=== PATIENT | male | born 1940 | race Caucasian/White ===

== ENCOUNTER 2017-05-20 10:32 | Day surgery (SDC) | payer OTHER ==
[~2017-05-20 10:32] MED LIST: DIPRIVAN VIAL ONE
[2017-05-20] MEDS ORDERED: NS 500 ML IV 500 ML IV ONE (10:56)
[2017-05-20] MEDS: TETRACAINE 0.5% OPHTH 1 DOSE AFFEYE ONE ×2 (11:00→14:36)
[2017-05-20] MEDS: NS 1/2 1000 ML IV 500 ML IV ONE (11:00)
[2017-05-20] MEDS: VIGAMOX 0.5% OPHTH 1 DOSE AFFEYE ONE ×6 (11:01→15:00)
[2017-05-20] MEDS: PROLENSA OPHTH 1 DOSE AFFEYE ONE (11:13)
[2017-05-20] MEDS: ALPHAGAN-P OPHTH 1 DOSE AFFEYE ONE (11:14)
[2017-05-20] MEDS: CYCLOGYL 1% OPHTH 1 DOSE OP ONE ×3 (11:15→11:17)
[2017-05-20] MEDS: MYDRIACIL OPHTH 1 DOSE AFFEYE ONE ×3 (11:15→11:17)
[2017-05-20] MEDS: AK-DILATE 2.5% OPHTH 1 DOSE OP ONE ×3 (11:15→11:17)
[2017-05-20] MEDS: BETADINE OPHTH SOLN 5% EACHEYE ONE (14:36)
[2017-05-20] MEDS: DUOVISC IO ONE (14:50)
[2017-05-20] MEDS: BSS OPHTH (PLAIN) 500 ML with VANCOMYCIN HCL 500 MG VIAL 25 MG, ADRENALINE CHL INJ 1 MG IR ONE ×3 (14:50)
[2017-05-20] MEDS: ADRENALINE CHL INJ IJ ONE (14:50)
[2017-05-20] MEDS: XYLOCAINE-MPF 1% IJ ONE (14:50)
[2017-05-20 15:46] VITALS: BP 150/74
== END 2017-05-20 15:30 | disposition home or self-care (01) ==
LOC: SURG1 10:32
PROVIDERS: ATTEND Ophthalmology
PROC: 08DK3ZZ Extraction of Left Lens, Percutaneous Approach (ICD-10-PCS; principal; 2017-05-20 20:45)
PROC: 08RK3JZ Replacement of Left Lens with Synthetic Substitute, Percutaneous Approach (ICD-10-PCS; principal; 2017-05-20 20:45)
DX: H25.12 Age-related nuclear cataract, left eye (principal); H25.012 Cortical age-related cataract, left eye
CPT/HCPCS: 99100; A4217; J0170; J3370; J3490

== ENCOUNTER 2017-06-10 07:32 | Day surgery (SDC) | payer OTHER ==
[2017-06-10] MEDS ORDERED: NS 500 ML IV 500 ML IV ONE (07:57)
[2017-06-10] MEDS ORDERED: TETRACAINE 0.5% OPHTH 1 DOSE AFFEYE ONE ×2 (08:00→09:46)
[2017-06-10] MEDS ORDERED: VIGAMOX 0.5% OPHTH 1 DOSE AFFEYE ONE ×5 (08:01→10:07)
[2017-06-10] MEDS ORDERED: PROLENSA OPHTH 1 DOSE AFFEYE ONE (08:12)
[2017-06-10] MEDS ORDERED: ALPHAGAN-P OPHTH 1 DOSE AFFEYE ONE (08:13)
[2017-06-10] MEDS ORDERED: MYDRIACIL OPHTH 1 DOSE AFFEYE ONE ×3 (08:14→08:16)
[2017-06-10] MEDS ORDERED: CYCLOGYL 1% OPHTH 1 DOSE OP ONE ×3 (08:14→08:16)
[2017-06-10] MEDS ORDERED: AK-DILATE 2.5% OPHTH 1 DOSE OP ONE ×3 (08:14→08:16)
[2017-06-10] MEDS ORDERED: BETADINE OPHTH SOLN 5% EACHEYE ONE (09:46)
[2017-06-10] MEDS ORDERED: DIPRIVAN VIAL ONE (09:46)
[2017-06-10] MEDS ORDERED: VERSED ONE (09:46)
[2017-06-10] MEDS ORDERED: XYLOCAINE-MPF 1% IJ ONE (09:55)
[2017-06-10] MEDS ORDERED: BSS OPHTH (PLAIN) 500 ML with VANCOMYCIN HCL 500 MG VIAL 25 MG, ADRENALINE CHL INJ 1 MG IR ONE ×3 (09:55)
[2017-06-10] MEDS ORDERED: DUOVISC IO ONE (09:55)
[2017-06-10] MEDS ORDERED: ADRENALINE CHL INJ IJ ONE (09:55)
[2017-06-10 10:21] VITALS: BP 198/87
== END 2017-06-10 10:21 | disposition home or self-care (01) ==
LOC: SURG1 07:32
PROVIDERS: ATTEND Ophthalmology
PROC: 08DJ3ZZ Extraction of Right Lens, Percutaneous Approach (ICD-10-PCS; principal; 2017-06-10 11:15)
PROC: 08RJ3JZ Replacement of Right Lens with Synthetic Substitute, Percutaneous Approach (ICD-10-PCS; principal; 2017-06-10 11:15)
DX: H25.11 Age-related nuclear cataract, right eye (principal); H25.011 Cortical age-related cataract, right eye; H52.221 Regular astigmatism, right eye
CPT/HCPCS: 99100; A4222; A4217; J0170; J2250; J3370; J3490

== ENCOUNTER 2018-08-24 12:41 | Inpatient (IN) ==
[2018-08-24] MEDS ORDERED: NS 1/2 1000 ML IV 1,000 ML IV ONE (14:51)
[2018-08-24 15:29] LABS: BASOPHILS # (AUTO) 0.1 X10^3/uL (0.0-0.1); EOSINOPHILS # (AUTO) 0.5 x10^3/uL (0.0-0.2); EOSINOPHILS % (AUTO) 5.4 % (0.9-2.9); HEMATOCRIT 42.1 % (42.0-54.0); LYMPHOCYTES % (AUTO) 21.7 % (21.0-51.0); MEAN CORPUSCULAR HEMOGLOBIN 32.7 pg (27.0-34.0); MEAN CORPUSCULAR HGB CONC 35.7 g/dL (33.0-35.0); MEAN CORPUSCULAR VOLUME 91.7 fL (80.0-100.0); MEAN PLATELET VOLUME 7.1 fL (7.4-11.0); MONOCYTES # (AUTO) 1.1 x10^3/uL (0.3-0.8); NEUTROPHILS # (AUTO) 5.4 x10^3/uL (2.2-4.8); NEUTROPHILS % (AUTO) 59.9 % (42.0-75.0); PLATELET COUNT 325 X10^3/uL (150.0-450.0); RED BLOOD COUNT 4.59 X10^6/uL (4.7-6.0)
[2018-08-24 15:43] LABS: ALANINE AMINOTRANSFERASE 26 Units/L (12-78); ALBUMIN 3.5 g/dL (3.4-5.0); ALKALINE PHOSPHATASE 59 Units/L (46-116); ASPARTATE AMINO TRANSFERASE 19 Units/L (15-37); BLOOD UREA NITROGEN 11 mg/dL (7-18); CALCIUM 8.7 mg/dL (8.5-10.1); CARBON DIOXIDE 22.2 mmol/L (21-32); CHLORIDE 98 mmol/L (98-107); CREATININE 1.13 mg/dL (0.70-1.30); SODIUM 131 mmol/L (136-145); TOTAL PROTEIN 7.1 g/dL (6.4-8.2); eGFR NON BLACK RACES > 60 (>60)
[2018-08-24] MEDS: LEVAQUIN PREMIX IV 750 MG 750 MG/150 ML BAG IV SCH (15:43)
[2018-08-24] MEDS: NS 1/2 1000 ML IV 1,000 ML IV SCH (15:43)
--- NOTE | 2018-08-24 15:59 | RAD ---
HISTORY: Pneumonia Study: PA and lateral views of the chest. Comparison: None. Findings: The cardiomediastinal silhouette is normal. No focal consolidations, pleural effusions or pneumothora x. Osseous structures demonstrate no acute abnormality. IMPRESSION: 1. No acute cardiopulmonary process. Reported By:
[2018-08-24] MEDS ORDERED: DUONEB 0.5 MG/3 MG ONE (16:25)
[2018-08-24 16:36] VITALS: BMI 35.0
[2018-08-24] MEDS ORDERED: PREVNAR 13 IM ONE (16:36)
[2018-08-24] MEDS: DUONEB 0.5 MG/3 MG NEB SCH ×2 (16:50→21:05)
[2018-08-24] MEDS: ROBITUSSIN DM PO SCH ×2 (17:20→20:54)
[2018-08-24] MEDS ORDERED: NORCO 5/325 MG TAB PO PRN (21:20)
[2018-08-24] MEDS: LOPRESSOR TAB 25 MG PO SCH (21:37)
[2018-08-25] MEDS: DUONEB 0.5 MG/3 MG NEB SCH ×6 (01:48→20:46)
[2018-08-25] MEDS ORDERED: NS 1/2 1000 ML IV 1,000 ML IV ONE ×2 (02:43→17:55)
[2018-08-25] MEDS: NS 1/2 1000 ML IV 1,000 ML IV SCH ×2 (04:54→17:56)
[2018-08-25 05:24] LABS: BASOPHILS # (AUTO) 0.1 X10^3/uL (0.0-0.1); BASOPHILS % (AUTO) 0.7 % (0.2-1.0); EOSINOPHILS # (AUTO) 0.4 x10^3/uL (0.0-0.2); EOSINOPHILS % (AUTO) 4.3 % (0.9-2.9); HEMATOCRIT 42.4 % (42.0-54.0); HEMOGLOBIN 15.1 g/dL (13.5-18.0); LYMPHOCYTES # (AUTO) 1.6 X10^3/uL (1.3-2.9); LYMPHOCYTES % (AUTO) 16.2 % (21.0-51.0); MEAN CORPUSCULAR HEMOGLOBIN 32.6 pg (27.0-34.0); MEAN CORPUSCULAR HGB CONC 35.7 g/dL (33.0-35.0); MEAN CORPUSCULAR VOLUME 91.3 fL (80.0-100.0); MEAN PLATELET VOLUME 7.1 fL (7.4-11.0); MONOCYTES # (AUTO) 1.2 x10^3/uL (0.3-0.8); MONOCYTES % (AUTO) 12.4 % (0.0-13.0); NEUTROPHILS # (AUTO) 6.5 x10^3/uL (2.2-4.8); NEUTROPHILS % (AUTO) 66.4 % (42.0-75.0); PLATELET COUNT 297 X10^3/uL (150.0-450.0); RED BLOOD COUNT 4.64 X10^6/uL (4.7-6.0); RED CELL DISTRIBUTION WIDTH 12.8 % (11.6-16.5); WHITE BLOOD COUNT 9.8 X10^3/uL (3.6-10.0)
[2018-08-25 05:28] LABS: ALANINE AMINOTRANSFERASE 23 Units/L (12-78); ALBUMIN 3.3 g/dL (3.4-5.0); ALKALINE PHOSPHATASE 50 Units/L (46-116); ASPARTATE AMINO TRANSFERASE 19 Units/L (15-37); BLOOD UREA NITROGEN 9 mg/dL (7-18); CALCIUM 8.5 mg/dL (8.5-10.1); CARBON DIOXIDE 24.9 mmol/L (21-32); CHLORIDE 97 mmol/L (98-107); COR CA(FOR HYPOALB) 9.1 mg/dL (8.5-10.1); CREATININE 1.06 mg/dL (0.70-1.30); SODIUM 130 mmol/L (136-145); TOTAL PROTEIN 6.9 g/dL (6.4-8.2); eGFR NON BLACK RACES > 60 (>60)
[2018-08-25] MEDS: TUSSIONEX PENNKINETIC SUSP PO PRN ×2 (06:19→23:45)
--- NOTE | 2018-08-25 08:07 | RAD ---
HISTORY: Pneumonia Study: Chest AP portable Comparison: 08/24/2018 Findings: The heart is within normal limits in size. The carlitos are normal. The aorta is calcified. The lungs are free of acute alveolar infiltrates. No pleural effusions are identified. The bony thorax is unremark able. IMPRESSION: Lungs clear Reported By:
[2018-08-25] MEDS: ROBITUSSIN DM PO SCH ×4 (08:14→20:58)
[2018-08-25] MEDS: LEVAQUIN PREMIX IV 750 MG 750 MG/150 ML BAG IV SCH (08:14)
[2018-08-25] MEDS: LOPRESSOR TAB 25 MG PO SCH ×2 (08:14→20:58)
[2018-08-25] MEDS: SYNTHROID 137 mcg TAB PO SCH (08:21)
[2018-08-25] MEDS: COZAAR PO SCH (08:21)
[2018-08-25] MEDS: MICRO K EXTEN CAP 10 MEQ PO SCH (08:21)
[2018-08-25] MEDS ORDERED: ZOFRAN INJ 4 MG VIAL IVP PRN (11:44)
[2018-08-25] MEDS ORDERED: CATAPRES-TTS-1 TD SCH (17:00)
[2018-08-25] MEDS: LASIX IVP SCH (17:51)
[2018-08-25] MEDS: ASPIRIN EC 81 MG PO SCH (17:51)
--- NOTE | 2018-08-25 20:51 | PCM.PROG ---
Progress Note - Progress Note for Day of Date of Exam: 08/25/18 - Subjective Subjective: WAS ADMITTED FOR TREATMENT OF BRONCHOPNEUMONIA. HE REPORTS BEING ON ANTIBIOTICS AND BREATHING TREATMENTS AT HOME FOR THE PAST WEEK WITHOUT IMPROVEMENT. TODAY, HE IS ALERT AND ORIENTED, LYING IN BED ON MORNING ROUNDS. HE CONTINUES WITH COMPLAINTS OF A PRODUCTIVE COUGH AND SHORTNESS OF BREATH. ON EXAMINATION, HEART IS REGULAR IN RATE AND RHYTHM. BILATERAL LUNGS ARE NOTED WITH SCATTERED WHEEZING AND RHONCHI. HE IS CURRENTLY UTILIZING OXYGEN VIA NASAL CANNULA AT 2L/MIN. ABDOMEN IS ROUND, SOFT, AND NON-TENDER WITH NORMAL BOWEL SOUNDS NOTED IN ALL QUADRANTS. HIS VITALS THIS MORNING ARE 98.6-82-20-96%- 190/98. LABS WERE OBTAINED. ABNORMAL LAB VALUES INCLUDE THE FOLLOWING: RBC 4.64 , SODIUM 130, CHLORIDE 97, GLUCOSE 103, ALBUMIN 3.3. BLOOD AND SPUTUM CULTURES ARE PENDING. CHEST XRAY STABLE. HE IS CURRENTLY RECEIVING LEVAQUIN 750MG IV DAILY, RESPIRATORY TREATMENTS, AND SUPPLEMENTAL OXYGEN. WE WILL CONTINUE WITH CURRENT PLAN OF CARE TODAY. OTHERWISE, WE PLAN TO FOLLOW-UP WITH AM LABS AND CONTINUE TO MONITOR PATIENT. - Past Medical Family Social History Past Med/Fam/Surg Hx: No changes since H&P Allergies: Allergies No Known Drug Allergies Allergy (Verified 05/20/17 11:06) - Review of Systems ROS: No change since H&P - Vital Signs and I&O's Vital Signs: Temperature 97.7 F Pulse Rate [Right Brachial] 82 Pulse Rate 74 Respiratory Rate 22 Blood Pressure [Right Arm] 198/98 Blood Pressure 198/87 O2 Sat by Pulse Oximetry 95 Intake and Output: Intake & Output 08/23/18 08/24/18 08/25/18 08/26/18 11:59 11:59 11:59 11:59 Intake Total 1820 / 1820 1320 / 1320 Output Total 1430 / 1430 1025 / 1025 Balance 390 / 390 295 / 295 - Physical Exam Oriented: Normal Eyes: Normal Ear: Normal Nose: Normal Throat: Normal Respiratory: Generalized, Diminished, Wheezes, Rhonchi Cardiovascular: Normal. negative: S3, S4, Murmur : Normal Auscultation: Bowel Sounds: Normal Palpation: Normal Tenderness: Normal Skin: Normal Musculoskeletal: Normal Psychiatric: Normal Mood Description: Calm Affect: Normal Speech Pattern: Clear, Appropriate - Laboratory and Diagnostics Result Diagrams: 10/02/18 04:47 08/25/18 04:47 Labs: 08/24/18 15:35 Sputum - Expectorated Sputum Sputum Culture - Preliminary 08/24/18 15:35 Sputum - Expectorated Sputum - Final Laboratory WBC 9.8 X10^3/uL (3.6-10.0) 08/25/18 04:47 RBC 4.64 X10^6/uL (4.7-6.0) L 08/25/18 04:47 Hgb 15.1 g/dL (13.5-18.0) 08/25/18 04:47 Hct 42.4 % (42.0-54.0) 08/25/18 04:47 MCV 91.3 fL (80.0-100.0) 08/25/18 04:47 MCH 32.6 pg (27.0-34.0) 08/25/18 04:47 MCHC 35.7 g/dL (33.0-35.0) H 08/25/18 04:47 RDW 12.8 % (11.6-16.5) 08/25/18 04:47 Plt Count 297 X10^3/uL (150.0-450.0) 08/25/18 04:47 MPV 7.1 fL (7.4-11.0) L 08/25/18 04:47 Neut % (Auto) 66.4 % (42.0-75.0) 08/25/18 04:47 Lymph % (Auto) 16.2 % (21.0-51.0) L 08/25/18 04:47 [place] % (Auto) 12.4 % (0.0-13.0) 08/25/18 04:47 Eos % (Auto) 4.3 % (0.9-2.9) H 08/25/18 04:47 Baso % (Auto) 0.7 % (0.2-1.0) 08/25/18 04:47 Neut # (Auto) 6.5 x10^3/uL (2.2-4.8) H 08/25/18 04:47 Lymph # (Auto) 1.6 X10^3/uL (1.3-2.9) 08/25/18 04:47 [place] # (Auto) 1.2 x10^3/uL (0.3-0.8) H 08/25/18 04:47 Eos # (Auto) 0.4 x10^3/uL (0.0-0.2) H 08/25/18 04:47 Baso # (Auto) 0.1 X10^3/uL (0.0-0.1) 08/25/18 04:47 Absolute Nucleated RBC 0.0 /100WBC 08/25/18 04:47 Sodium 130 mmol/L (136-145) L 08/25/18 04:47 Corrected Sodium TNP 08/25/18 04:47 Potassium 3.8 mmol/L (3.5-5.1) 08/25/18 04:47 Chloride 97 mmol/L (98-107) L 08/25/18 04:47 Carbon Dioxide 24.9 mmol/L (21-32) 08/25/18 04:47 BUN 9 mg/dL (7-18) 08/25/18 04:47 Creatinine 1.06 mg/dL (0.70-1.30) 08/25/18 04:47 Est GFR (MDRD) Af Amer > 60 (>60) 08/25/18 04:47 Est GFR (MDRD) Non-Af > 60 (>60) 08/25/18 04:47 Glucose 103 mg/dL (65-99) H 08/25/18 04:47 Calcium 8.5 mg/dL (8.5-10.1) 08/25/18 04:47 Corrected Calcium 9.1 mg/dL (8.5-10.1) 08/25/18 04:47 Total Bilirubin 0.50 mg/dL (0.2-1.0) 08/25/18 04:47 AST 19 Units/L (15-37) 08/25/18 04:47 ALT 23 Units/L (12-78) 08/25/18 04:47 Alkaline Phosphatase 50 Units/L (46-116) 08/25/18 04:47 Total Protein 6.9 g/dL (6.4-8.2) 08/25/18 04:47 Albumin 3.3 g/dL (3.4-5.0) L 08/25/18 04:47 Globulin 3.6 g/dL (2.5-4.5) 08/25/18 04:47 Albumin/Globulin Ratio 0.9 Ratio (1.1-2.1) L 08/25/18 04:47 - Plan (1) Bronchopneumonia Status: Acute Plan: IV LEVAQUIN, RESPIRATORY TREATMENTS, SUPPLEMENTAL OXYGEN, CONTINUE TO MONITOR
[2018-08-25] MEDS: COLACE CAP 100 MG PO SCH (20:58)
[2018-08-25] MEDS: MILK OF MAGNESIA PO SCH (21:00)
[2018-08-25] MEDS ORDERED: FENOFIBRATE MICRONIZED PO SCH (21:00)
[2018-08-26] MEDS: DUONEB 0.5 MG/3 MG NEB SCH ×6 (01:00→21:35)
[2018-08-26] MEDS ORDERED: NS 1/2 1000 ML IV 1,000 ML IV ONE (05:01)
[2018-08-26] MEDS: NS 1/2 1000 ML IV 1,000 ML IV SCH (05:12)
[2018-08-26] MEDS: LASIX IVP SCH ×2 (06:04→16:42)
[2018-08-26 06:06] LABS: BASOPHILS # (AUTO) 0.1 X10^3/uL (0.0-0.1); BASOPHILS % (AUTO) 0.5 % (0.2-1.0); EOSINOPHILS # (AUTO) 0.4 x10^3/uL (0.0-0.2); EOSINOPHILS % (AUTO) 3.2 % (0.9-2.9); HEMATOCRIT 42.3 % (42.0-54.0); HEMOGLOBIN 15.2 g/dL (13.5-18.0); LYMPHOCYTES # (AUTO) 1.8 X10^3/uL (1.3-2.9); LYMPHOCYTES % (AUTO) 16.8 % (21.0-51.0); MEAN CORPUSCULAR VOLUME 91.7 fL (80.0-100.0); MEAN PLATELET VOLUME 7.2 fL (7.4-11.0); MONOCYTES # (AUTO) 1.2 x10^3/uL (0.3-0.8); MONOCYTES % (AUTO) 11.2 % (0.0-13.0); NEUTROPHILS # (AUTO) 7.5 x10^3/uL (2.2-4.8); NEUTROPHILS % (AUTO) 68.3 % (42.0-75.0); PLATELET COUNT 316 X10^3/uL (150.0-450.0); RED BLOOD COUNT 4.61 X10^6/uL (4.7-6.0); RED CELL DISTRIBUTION WIDTH 12.6 % (11.6-16.5)
--- NOTE | 2018-08-26 06:10 | RAD ---
HISTORY: Follow-up pneumonia Study: Chest AP portable Comparison: August 25, 2018 Findings: The heart is within normal limits in size. The carlitos are normal. The aorta is calcified. The lungs are well inflated and free of acute alveolar infiltrates. No pleural effusions are identified. The bony thorax is unremarkable. IMPRESSION: Lungs clear Reported By:
[2018-08-26 06:27] LABS: ALANINE AMINOTRANSFERASE 27 Units/L (12-78); ALBUMIN 3.7 g/dL (3.4-5.0); ALKALINE PHOSPHATASE 49 Units/L (46-116); ASPARTATE AMINO TRANSFERASE 34 Units/L (15-37); BLOOD UREA NITROGEN 9 mg/dL (7-18); CALCIUM 8.9 mg/dL (8.5-10.1); CARBON DIOXIDE 23.5 mmol/L (21-32); CHLORIDE 89 mmol/L (98-107); TOTAL PROTEIN 7.3 g/dL (6.4-8.2); eGFR NON BLACK RACES > 60 (>60)
[2018-08-26 06:31] LABS: SODIUM 123 mmol/L (136-145)
[2018-08-26] MEDS: ROBITUSSIN DM PO SCH ×4 (08:19→21:05)
[2018-08-26] MEDS: LOPRESSOR TAB 25 MG PO SCH ×2 (08:19→21:04)
[2018-08-26] MEDS: SYNTHROID 137 mcg TAB PO SCH (08:20)
[2018-08-26] MEDS: LEVAQUIN PREMIX IV 750 MG 750 MG/150 ML BAG IV SCH (08:20)
[2018-08-26] MEDS: ASPIRIN EC 81 MG PO SCH (08:20)
[2018-08-26] MEDS: COZAAR PO SCH (08:20)
[2018-08-26] MEDS: MICRO K EXTEN CAP 10 MEQ PO SCH (08:20)
[2018-08-26] MEDS: TRICOR TAB 145 MG PO SCH ×2 (08:26→21:04)
[2018-08-26] MEDS ORDERED: NS 500 ML IV 500 ML IV ONE (09:20)
[2018-08-26] MEDS: NS 1000 ML 1,000 ML IV SCH ×2 (11:30→23:45)
--- NOTE | 2018-08-26 20:26 | PCM.PROG ---
Progress Note - Progress Note for Day of Date of Exam: 08/26/18 - Subjective Subjective: WAS ADMITTED FOR TREATMENT OF BRONCHOPNEUMONIA. TODAY, HE IS ALERT AND ORIENTED, LYING IN BED ON MORNING ROUNDS. HE CONTINUES WITH COMPLAINTS OF A PRODUCTIVE COUGH AND SHORTNESS OF BREATH. ON EXAMINATION, HEART IS REGULAR IN RATE AND RHYTHM. BILATERAL LUNGS ARE NOTED WITH SCATTERED WHEEZING AND RHONCHI. HE IS CURRENTLY UTILIZING OXYGEN VIA NASAL CANNULA AT 2L/MIN. ABDOMEN IS ROUND, SOFT, AND NON-TENDER WITH NORMAL BOWEL SOUNDS NOTED IN ALL QUADRANTS. HIS VITALS THIS MORNING ARE 97.7-76-18-97%NC-165/83. LABS WERE OBTAINED. ABNORMAL LAB VALUES INCLUDE THE FOLLOWING: WBC 11.0, RBC 4.61, SODIUM 123, CHLORIDE 89, GLUCOSE 100. BLOOD AND SPUTUM CULTURES ARE PENDING. CHEST XRAY STABLE. HE IS CURRENTLY RECEIVING LEVAQUIN 750MG IV DAILY, RESPIRATORY TREATMENTS, AND SUPPLEMENTAL OXYGEN. WE WILL DISCONTINUE THE NS AND START NORMAL SALINE AT 75ML/HR. WE WILL BOLUS HIM WITH 500ML NORMAL SALINE. OTHERWISE, WE WILL CONTINUE WITH CURRENT PLAN OF CARE TODAY. WE PLAN TO FOLLOW-UP WITH AM LABS AND CONTINUE TO MONITOR PATIENT. - Past Medical Family Social History Past Med/Fam/Surg Hx: No changes since H&P Allergies: Allergies No Known Drug Allergies Allergy (Verified 05/20/17 11:06) - Review of Systems ROS: No change since H&P - Vital Signs and I&O's Vital Signs: Temperature 97.9 F Pulse Rate [Right Brachial] 76 Pulse Rate 80 Respiratory Rate 20 Blood Pressure [Right Arm] 133/67 Blood Pressure 198/87 O2 Sat by Pulse Oximetry 97 Intake and Output: Intake & Output 08/24/18 08/25/18 08/26/18 08/27/18 11:59 11:59 11:59 11:59 Intake Total 1820 / 1820 2390 / 2390 700 / 700 Output Total 1430 / 1430 3525 / 3525 1670 / 1670 Balance 390 / 390 -1135 / -1135 -970 / -970 - Physical Exam Oriented: Normal Eyes: Normal Ear: Normal Nose: Normal Throat: Normal Respiratory: Generalized, Diminished, Wheezes, Rhonchi Cardiovascular: Normal. negative: S3, S4, Murmur : Normal Auscultation: Bowel Sounds: Normal Palpation: Normal Tenderness: Normal Skin: Normal Musculoskeletal: Normal Psychiatric: Normal Mood Description: Calm Affect: Normal Speech Pattern: Clear, Appropriate - Laboratory and Diagnostics Result Diagrams: 08/26/18 05:14 08/26/18 05:14 Labs: 08/24/18 15:17 Blood Blood Culture - Preliminary 08/24/18 15:12 Blood Blood Culture - Preliminary 08/24/18 15:35 Sputum - Expectorated Sputum Sputum Culture - Final 08/24/18 15:35 Sputum - Expectorated Sputum - Final Laboratory WBC 11.0 X10^3/uL (3.6-10.0) H 08/26/18 05:14 RBC 4.61 X10^6/uL (4.7-6.0) L 08/26/18 05:14 Hgb 15.2 g/dL (13.5-18.0) 08/26/18 05:14 Hct 42.3 % (42.0-54.0) 08/26/18 05:14 MCV 91.7 fL (80.0-100.0) 08/26/18 05:14 MCH 33.0 pg (27.0-34.0) 08/26/18 05:14 MCHC 36.0 g/dL (33.0-35.0) H 08/26/18 05:14 RDW 12.6 % (11.6-16.5) 08/26/18 05:14 Plt Count 316 X10^3/uL (150.0-450.0) 08/26/18 05:14 MPV 7.2 fL (7.4-11.0) L 08/26/18 05:14 Neut % (Auto) 68.3 % (42.0-75.0) 08/26/18 05:14 Lymph % (Auto) 16.8 % (21.0-51.0) L 08/26/18 05:14 [place] % (Auto) 11.2 % (0.0-13.0) 08/26/18 05:14 Eos % (Auto) 3.2 % (0.9-2.9) H 08/26/18 05:14 Baso % (Auto) 0.5 % (0.2-1.0) 08/26/18 05:14 Neut # (Auto) 7.5 x10^3/uL (2.2-4.8) H 08/26/18 05:14 Lymph # (Auto) 1.8 X10^3/uL (1.3-2.9) 08/26/18 05:14 [place] # (Auto) 1.2 x10^3/uL (0.3-0.8) H 08/26/18 05:14 Eos # (Auto) 0.4 x10^3/uL (0.0-0.2) H 08/26/18 05:14 Baso # (Auto) 0.1 X10^3/uL (0.0-0.1) 08/26/18 05:14 Absolute Nucleated RBC 0.0 /100WBC 08/26/18 05:14 Sodium 123 mmol/L (136-145) L* 08/26/18 05:14 Corrected Sodium TNP 08/26/18 05:14 Potassium 4.5 mmol/L (3.5-5.1) 08/26/18 05:14 Chloride 89 mmol/L (98-107) L 08/26/18 05:14 Carbon Dioxide 23.5 mmol/L (21-32) 08/26/18 05:14 BUN 9 mg/dL (7-18) 08/26/18 05:14 Creatinine 1.10 mg/dL (0.70-1.30) 08/26/18 05:14 Est GFR (MDRD) Af Amer > 60 (>60) 08/26/18 05:14 Est GFR (MDRD) Non-Af > 60 (>60) 08/26/18 05:14 Glucose 100 mg/dL (65-99) H 08/26/18 05:14 Calcium 8.9 mg/dL (8.5-10.1) 08/26/18 05:14 Corrected Calcium TNP 08/26/18 05:14 Total Bilirubin 0.80 mg/dL (0.2-1.0) 08/26/18 05:14 AST 34 Units/L (15-37) 08/26/18 05:14 ALT 27 Units/L (12-78) 08/26/18 05:14 Alkaline Phosphatase 49 Units/L (46-116) 08/26/18 05:14 Total Protein 7.3 g/dL (6.4-8.2) 08/26/18 05:14 Albumin 3.7 g/dL (3.4-5.0) 08/26/18 05:14 Globulin 3.6 g/dL (2.5-4.5) 08/26/18 05:14 Albumin/Globulin Ratio 1.0 Ratio (1.1-2.1) L 08/26/18 05:14 - Plan (1) Bronchopneumonia Status: Acute Plan: IV LEVAQUIN, RESPIRATORY TREATMENTS, SUPPLEMENTAL OXYGEN, CONTINUE TO MONITOR (2) Hyponatremia Status: Acute Plan: NORMAL SALINE 500ML BOLUS, THEN NORMAL SALINE AT 75ML/HR
[2018-08-26] MEDS: COLACE CAP 100 MG PO SCH (21:03)
[2018-08-26] MEDS: MILK OF MAGNESIA PO SCH (21:05)
[2018-08-27] MEDS: DUONEB 0.5 MG/3 MG NEB SCH ×6 (00:46→20:55)
[2018-08-27] MEDS: TUSSIONEX PENNKINETIC SUSP PO PRN (02:08)
[2018-08-27 05:59] LABS: BASOPHILS % (AUTO) 0.4 % (0.2-1.0); EOSINOPHILS # (AUTO) 0.4 x10^3/uL (0.0-0.2); HEMATOCRIT 39.4 % (42.0-54.0); HEMOGLOBIN 14.1 g/dL (13.5-18.0); LYMPHOCYTES # (AUTO) 2.2 X10^3/uL (1.3-2.9); LYMPHOCYTES % (AUTO) 20.7 % (21.0-51.0); MEAN CORPUSCULAR HEMOGLOBIN 32.1 pg (27.0-34.0); MEAN CORPUSCULAR HGB CONC 35.7 g/dL (33.0-35.0); MEAN CORPUSCULAR VOLUME 89.9 fL (80.0-100.0); MEAN PLATELET VOLUME 7.2 fL (7.4-11.0); MONOCYTES # (AUTO) 1.3 x10^3/uL (0.3-0.8); MONOCYTES % (AUTO) 12.4 % (0.0-13.0); NEUTROPHILS # (AUTO) 6.7 x10^3/uL (2.2-4.8); NEUTROPHILS % (AUTO) 62.5 % (42.0-75.0); PLATELET COUNT 300 X10^3/uL (150.0-450.0); RED BLOOD COUNT 4.38 X10^6/uL (4.7-6.0); RED CELL DISTRIBUTION WIDTH 12.6 % (11.6-16.5); WHITE BLOOD COUNT 10.7 X10^3/uL (3.6-10.0)
[2018-08-27 06:10] LABS: ALANINE AMINOTRANSFERASE 30 Units/L (12-78); ALBUMIN 3.3 g/dL (3.4-5.0); ALKALINE PHOSPHATASE 47 Units/L (46-116); ASPARTATE AMINO TRANSFERASE 41 Units/L (15-37); BLOOD UREA NITROGEN 14 mg/dL (7-18); CALCIUM 8.2 mg/dL (8.5-10.1); CARBON DIOXIDE 23.5 mmol/L (21-32); CHLORIDE 87 mmol/L (98-107); COR CA(FOR HYPOALB) 8.8 mg/dL (8.5-10.1); CREATININE 1.12 mg/dL (0.70-1.30); TOTAL PROTEIN 6.5 g/dL (6.4-8.2); eGFR NON BLACK RACES > 60 (>60)
[2018-08-27 06:27] LABS: SODIUM 119 mmol/L (136-145)
--- NOTE | 2018-08-27 06:40 | RAD ---
HISTORY: Follow-up pneumonia Study: Chest AP portable Comparison: 08/26/2018 Findings: The heart is within normal limits in size. The carlitos are normal. The aorta is calcified. The lungs are free of acute alveolar infiltrates. No pleural effusions are identified. There is some subsegmental atelectasis in the retrocardiac area of the left lower lobe. The bony thorax is unremarkable. IMPRESSION: No definite infiltrates Subsegmental atelectasis left lower lobe Reported By:
[2018-08-27] MEDS: NS 1000 ML 1,000 ML IV SCH ×2 (07:59→15:06)
[2018-08-27] MEDS: LEVAQUIN PREMIX IV 750 MG 750 MG/150 ML BAG IV SCH (08:07)
[2018-08-27] MEDS: ROBITUSSIN DM PO SCH ×4 (08:07→20:58)
[2018-08-27] MEDS: COZAAR PO SCH (08:09)
[2018-08-27] MEDS: MICRO K EXTEN CAP 10 MEQ PO SCH (08:10)
[2018-08-27] MEDS: LOPRESSOR TAB 25 MG PO SCH ×2 (08:10→20:57)
[2018-08-27] MEDS: SYNTHROID 137 mcg TAB PO SCH (08:10)
[2018-08-27] MEDS: ASPIRIN EC 81 MG PO SCH (08:10)
[2018-08-27] MEDS: COLACE CAP 100 MG PO SCH (20:57)
[2018-08-27] MEDS: MILK OF MAGNESIA PO SCH (20:57)
[2018-08-27] MEDS: TRICOR TAB 145 MG PO SCH (20:58)
--- NOTE | 2018-08-27 21:34 | PCM.PROG ---
Progress Note - Progress Note for Day of Date of Exam: 08/27/18 - Subjective Subjective: WAS ADMITTED FOR TREATMENT OF BRONCHOPNEUMONIA. TODAY, HE IS ALERT AND ORIENTED, LYING IN BED ON MORNING ROUNDS. HE CONTINUES WITH COMPLAINTS OF A PRODUCTIVE COUGH AND SHORTNESS OF BREATH, BUT REPORTS SLIGHT IMPROVEMENT SINCE YESTERDAY. ON EXAMINATION, HEART IS REGULAR IN RATE AND R HYTHM. BILATERAL LUNGS ARE NOTED WITH SCATTERED WHEEZING AND RHONCHI. HE IS CURRENTLY UTILIZING OXYGEN VIA NASAL CANNULA AT 2L/MIN. ABDOMEN IS ROUND, SOFT, AND NON-TENDER WITH NORMAL BOWEL SOUNDS NOTED IN ALL QUADRANTS. HIS VITALS THIS MORNING ARE 97.7-70-20-96%-168/74. LABS WERE OBTAINED. ABNORMAL LAB VALUES INCLUDE THE FOLLOWING: WBC 10.7, RBC 4.38, HCT 39.4, SODIUM DECREASED TO 119, CHLORIDE 87, CALCIUM 8.2, AST 41, ALBUMIN 3.3. BLOOD AND SPUTUM CULTURES ARE PENDING. CHEST XRAY STABLE. HE IS CURRENTLY RECEIVING LEVAQUIN 750MG IV DAILY, RESPIRATORY TREATMENTS, AND SUPPLEMENTAL OXYGEN. WE WILL GENTLE IV HYDRATION FOR THE HYPONATREMIA. OTHERWISE, WE WILL CONTINUE WITH CURRENT PLAN OF CARE TODAY. WE PLAN TO FOLLOW-UP WITH AM LABS AND CONTINUE TO MONITOR PATIENT. - Past Medical Family Social History Past Med/Fam/Surg Hx: No changes since H&P Allergies: Allergies No Known Drug Allergies Allergy (Verified 05/20/17 11:06) - Review of Systems ROS: No change since H&P - Vital Signs and I&O's Vital Signs: Temperature 97.4 F Pulse Rate [Right Brachial] 69 Pulse Rate 66 Respiratory Rate 20 Blood Pressure [Right Arm] 171/87 Blood Pressure 198/87 O2 Sat by Pulse Oximetry 95 Intake and Output: Intake & Output 08/25/18 08/26/18 08/27/18 08/28/18 11:59 11:59 11:59 11:59 Intake Total 1820 / 1820 2390 / 2390 970 / 970 1400 / 1400 Output Total 1430 / 1430 3525 / 3525 2345 / 2345 1500 / 1500 Balance 390 / 390 -1135 / -1135 -1375 / -1375 -100 / -100 - Physical Exam Oriented: Normal Eyes: Normal Ear: Normal Nose: Normal Throat: Normal Respiratory: Generalized, Diminished, Wheezes, Rhonchi Cardiovascular: Normal. negative: S3, S4, Murmur : Normal Auscultation: Bowel Sounds: Normal Palpation: Normal Tenderness: Normal Skin: Normal Musculoskeletal: Normal Psychiatric: Normal Mood Description: Calm Affect: Normal Speech Pattern: Clear, Appropriate - Laboratory and Diagnostics Result Diagrams: 08/27/18 04:52 08/27/18 04:52 Labs: 08/24/18 15:17 Blood Blood Culture - Preliminary 08/24/18 15:12 Blood Blood Culture - Preliminary 08/24/18 15:35 Sputum - Expectorated Sputum Sputum Culture - Final 08/24/18 15:35 Sputum - Expectorated Sputum - Final Laboratory WBC 10.7 X10^3/uL (3.6-10.0) H 08/27/18 04:52 RBC 4.38 X10^6/uL (4.7-6.0) L 08/27/18 04:52 Hgb 14.1 g/dL (13.5-18.0) 08/27/18 04:52 Hct 39.4 % (42.0-54.0) L 08/27/18 04:52 MCV 89.9 fL (80.0-100.0) 08/27/18 04:52 MCH 32.1 pg (27.0-34.0) 08/27/18 04:52 MCHC 35.7 g/dL (33.0-35.0) H 08/27/18 04:52 RDW 12.6 % (11.6-16.5) 08/27/18 04:52 Plt Count 300 X10^3/uL (150.0-450.0) 08/27/18 04:52 MPV 7.2 fL (7.4-11.0) L 08/27/18 04:52 Neut % (Auto) 62.5 % (42.0-75.0) 08/27/18 04:52 Lymph % (Auto) 20.7 % (21.0-51.0) L 08/27/18 04:52 [place] % (Auto) 12.4 % (0.0-13.0) 08/27/18 04:52 Eos % (Auto) 4.0 % (0.9-2.9) H 08/27/18 04:52 Baso % (Auto) 0.4 % (0.2-1.0) 08/27/18 04:52 Neut # (Auto) 6.7 x10^3/uL (2.2-4.8) H 08/27/18 04:52 Lymph # (Auto) 2.2 X10^3/uL (1.3-2.9) 08/27/18 04:52 [place] # (Auto) 1.3 x10^3/uL (0.3-0.8) H 08/27/18 04:52 Eos # (Auto) 0.4 x10^3/uL (0.0-0.2) H 08/27/18 04:52 Baso # (Auto) 0.0 X10^3/uL (0.0-0.1) 08/27/18 04:52 Absolute Nucleated RBC 0.0 /100WBC 08/27/18 04:52 Sodium 119 mmol/L (136-145) L* 08/27/18 04:52 Corrected Sodium TNP 08/27/18 04:52 Potassium 3.9 mmol/L (3.5-5.1) 08/27/18 04:52 Chloride 87 mmol/L (98-107) L 08/27/18 04:52 Carbon Dioxide 23.5 mmol/L (21-32) 08/27/18 04:52 BUN 14 mg/dL (7-18) 08/27/18 04:52 Creatinine 1.12 mg/dL (0.70-1.30) 08/27/18 04:52 Est GFR (MDRD) Af Amer > 60 (>60) 08/27/18 04:52 Est GFR (MDRD) Non-Af > 60 (>60) 08/27/18 04:52 Glucose 94 mg/dL (65-99) 08/27/18 04:52 Calcium 8.2 mg/dL (8.5-10.1) L 08/27/18 04:52 Corrected Calcium 8.8 mg/dL (8.5-10.1) 08/27/18 04:52 Total Bilirubin 0.90 mg/dL (0.2-1.0) 08/27/18 04:52 AST 41 Units/L (15-37) H 08/27/18 04:52 ALT 30 Units/L (12-78) 08/27/18 04:52 Alkaline Phosphatase 47 Units/L (46-116) 08/27/18 04:52 Total Protein 6.5 g/dL (6.4-8.2) 08/27/18 04:52 Albumin 3.3 g/dL (3.4-5.0) L 08/27/18 04:52 Globulin 3.2 g/dL (2.5-4.5) 08/27/18 04:52 Albumin/Globulin Ratio 1.0 Ratio (1.1-2.1) L 08/27/18 04:52 - Plan (1) Bronchopneumonia Status: Acute Plan: IV LEVAQUIN, RESPIRATORY TREATMENTS, SUPPLEMENTAL OXYGEN, CONTINUE TO MONITOR (2) Hyponatremia Status: Acute Plan: NORMAL SALINE AT 75ML/HR, CONTINUE TO MONITOR
[2018-08-28] MEDS: NS 1000 ML 1,000 ML IV SCH ×2 (00:23→04:15)
[2018-08-28] MEDS: DUONEB 0.5 MG/3 MG NEB SCH ×3 (01:06→08:45)
[2018-08-28] MEDS: TUSSIONEX PENNKINETIC SUSP PO PRN (02:21)
[2018-08-28 06:01] LABS: EOSINOPHILS % (AUTO) 6.4 % (0.9-2.9); HEMATOCRIT 37.8 % (42.0-54.0); HEMOGLOBIN 13.6 g/dL (13.5-18.0); LYMPHOCYTES % (AUTO) 16.2 % (21.0-51.0); MEAN CORPUSCULAR HEMOGLOBIN 32.3 pg (27.0-34.0); MEAN CORPUSCULAR VOLUME 89.8 fL (80.0-100.0); MEAN PLATELET VOLUME 7.1 fL (7.4-11.0); MONOCYTES % (AUTO) 12.2 % (0.0-13.0); NEUTROPHILS % (AUTO) 64.6 % (42.0-75.0); PLATELET COUNT 288 X10^3/uL (150.0-450.0); RED BLOOD COUNT 4.21 X10^6/uL (4.7-6.0); RED CELL DISTRIBUTION WIDTH 12.7 % (11.6-16.5)
[2018-08-28 06:02] LABS: BASOPHILS # (AUTO) 0.1 X10^3/uL (0.0-0.1); BASOPHILS % (AUTO) 0.6 % (0.2-1.0); EOSINOPHILS # (AUTO) 0.6 x10^3/uL (0.0-0.2); LYMPHOCYTES # (AUTO) 1.6 X10^3/uL (1.3-2.9); MONOCYTES # (AUTO) 1.2 x10^3/uL (0.3-0.8); NEUTROPHILS # (AUTO) 6.4 x10^3/uL (2.2-4.8)
[2018-08-28 06:08] LABS: ALANINE AMINOTRANSFERASE 34 Units/L (12-78); ALBUMIN 3.2 g/dL (3.4-5.0); ALKALINE PHOSPHATASE 47 Units/L (46-116); ASPARTATE AMINO TRANSFERASE 50 Units/L (15-37); BLOOD UREA NITROGEN 10 mg/dL (7-18); CALCIUM 7.8 mg/dL (8.5-10.1); CARBON DIOXIDE 22.6 mmol/L (21-32); CHLORIDE 85 mmol/L (98-107); COR CA(FOR HYPOALB) 8.4 mg/dL (8.5-10.1); CREATININE 0.83 mg/dL (0.70-1.30); MAGNESIUM 1.9 mg/dL (1.7-2.9); TOTAL PROTEIN 6.4 g/dL (6.4-8.2); eGFR NON BLACK RACES > 60 (>60)
[2018-08-28 06:13] LABS: SODIUM 115 mmol/L (136-145)
[2018-08-28] MEDS: ROBITUSSIN DM PO SCH (08:07)
[2018-08-28] MEDS: LOPRESSOR TAB 25 MG PO SCH (08:07)
[2018-08-28] MEDS: ASPIRIN EC 81 MG PO SCH (08:07)
[2018-08-28] MEDS: MICRO K EXTEN CAP 10 MEQ PO SCH (08:07)
[2018-08-28] MEDS: SYNTHROID 137 mcg TAB PO SCH (08:07)
[2018-08-28] MEDS: COZAAR PO SCH (08:08)
[2018-08-28] MEDS: LEVAQUIN PREMIX IV 750 MG 750 MG/150 ML BAG IV SCH (08:08)
[2018-08-28] MEDS ORDERED: THERMOTABS PO SCH (09:00)
[2018-08-28 09:45] VITALS: BP 126/74
--- NOTE | 2018-08-28 10:26 | DR.UPDATE ---
H&P Update History and Physical Update: WAS SEEN IN THE OFFICE TODAY. A H&P WAS COMPLETED PRIOR TO ADMISSION. PATIENT HAS BEEN SEEN AND EXAMINED WITH NO CHANGES NOTED TO H&P. Changes noted: NO Yes with the following:
[2018-08-28] MEDS ORDERED: PREVNAR 13 IM ONE (11:17)
[2018-08-28] MEDS ORDERED: FLUVIRIN IM ONE (11:17)
--- NOTE | 2018-10-13 21:48 | DR.CARTERD ---
- Discharge Summary for: Discharge Summary for Date of:: 08/28/18 - Admission Date Date of Admission: 08/24/18 - Admission Diagnoses Admission Diagnosis: (1) Bronchopneumonia - Discharge Date Discharge Date: 08/28/18 - Discharge Diagnoses Discharge Diagnosis: (1) Bronchopneumonia (2) Hyponatremia - Hospital Course Hospital Course: DAY ONE, WAS ADMITTED FOR TREATMENT OF BRONCHOPNEUMONIA. HE REPORTS BEING ON ANTIBIOTICS AND BREATHING TREATMENTS AT HOME FOR THE PAST WEEK WITHOUT IMPROVEMENT. HE COMPLAINED OF SOB, WHEEZING, AND A COUGH. WE STARTED IV FLUIDS AND IV ANTIBIOTICS FOR TREATMENT. WE REPEATED LABS IN THE AM AND CONTINUED TO MONITOR PATIENT. DAY TWO, TODAY, HE IS ALERT AND ORIENTED, LYING IN BED ON MORNING ROUNDS. HE CONTINUED WITH COMPLAINTS OF A PRODUCTIVE COUGH AND SHORTNESS OF BREATH. ON EXAMINATION, HEART IS REGULAR IN RATE AND RHYTHM. BILATERAL LUNGS WERE NOTED WITH SCATTERED WHEEZING AND RHONCHI. HE WAS UTILIZING OXYGEN VIA NASAL CANNULA AT 2L/MIN. ABDOMEN WAS ROUND, SOFT, AND NON-TENDER WITH NORMAL BOWEL SOUNDS NOTED IN ALL QUADRANTS. HIS VITALS THIS MORNING WERE 98.6-82-20-96%-190/98. LABS WERE OBTAINED. ABNORMAL LAB VALUES INCLUDE THE FOLLOWING: RBC 4.64, SODIUM 130, CHLORIDE 97, GLUCOSE 103, ALBUMIN 3.3. BLOOD AND SPUTUM CULTURES ARE PENDING. CHEST XRAY STABLE. HE RECEIVED LEVAQUIN 750MG IV DAILY, RESPIRATORY TREATMENTS, AND SUPPLEMENTAL OXYGEN. WE CONTINUED WITH CURRENT PLAN OF CARE TODAY. WE PLANNED TO FOLLOW-UP WITH AM LABS AND CONTINUED TO MONITOR PATIENT. DAY THREE, TODAY, HE IS ALERT AND ORIENTED, LYING IN BED ON MORNING ROUNDS. HE CONTINUED WITH COMPLAINTS OF A PRODUCTIVE COUGH AND SHORTNESS OF BREATH. ON EXAMINATION, HEART IS REGULAR IN RATE AND RHYTHM. BILATERAL LUNGS WERE NOTED WITH SCATTERED WHEEZING AND RHONCHI. HE WAS UTILIZING OXYGEN VIA NASAL CANNULA AT 2L/MIN. ABDOMEN WASNROUND, SOFT, AND NON-TENDER WITH NORMAL BOWEL SOUNDS NOTED IN ALL QUADRANTS. HIS VITALS THIS MORNING ARE 97.7-76-18-97%NC-165/83. LABS WERE OBTAINED. ABNORMAL LAB VALUES INCLUDE THE FOLLOWING: WBC 11.0, RBC 4.61, SODIUM 123, CHLORIDE 89, GLUCOSE 100. BLOOD AND SPUTUM CULTURES ARE PENDING. CHEST XRAY STABLE. HE HAS RECEIVED LEVAQUIN 750MG IV DAILY, RESPIRATORY TREATMENTS, AND SUPPLEMENTAL OXYGEN. WE DISCONTINUED THE NS AND START NORMAL SALINE AT 75ML/HR. WE GAVE HIM A BOLUS WITH 500ML NORMAL SALINE. OTHERWISE, WE CONTINUED WITH CURRENT PLAN OF CARE TODAY. WE PLANNED TO FOLLOW-UP WITH AM LABS AND CONTINUED TO MONITOR PATIENT. DAY FOUR, TODAY, HE WAS ALERT AND ORIENTED, LYING IN BED ON MORNING ROUNDS. HE CONTINUED WITH COMPLAINTS OF A PRODUCTIVE COUGH AND SHORTNESS OF BREATH, BUT REPORTS SLIGHT IMPROVEMENT SINCE YESTERDAY. ON EXAMINATION, HEART IS REGULAR IN RATE AND RHYTHM. BILATERAL LUNGS WERE NOTED WITH SCATTERED WHEEZING AND RHONCHI. HE WAS UTILIZING OXYGEN VIA NASAL CANNULA AT 2L/MIN. ABDOMEN WAS ROUND, SOFT, AND NON-TENDER WITH NORMAL BOWEL SOUNDS NOTED IN ALL QUADRANTS. HIS VITALS THIS MORNING ARE 97.7-70-20-96%-168/74. LABS WERE OBTAINED. ABNORMAL LAB VALUES INCLUDE THE FOLLOWING: WBC 10.7, RBC 4.38, HCT 39.4, SODIUM DECREASED TO 119, CHLORIDE 87, CALCIUM 8.2, AST 41, ALBUMIN 3.3. BLOOD AND SPUTUM CULTURES ARE PENDING. CHEST XRAY STABLE. HE WAS RECEIVING LEVAQUIN 750MG IV DAILY, RESPIRATORY TREATMENTS, AND SUPPLEMENTAL OXYGEN. WE GAVE GENTLE IV HYDRATION FOR THE HYPONATREMIA. WE CONTINUED WITH CURRENT PLAN OF CARE TODAY. WE PLANNED TO FOLLOW-UP WITH AM LABS AND CONTINUED TO MONITOR PATIENT. DAY FIVE, PATIENT'S SYMPTOMS IMPROVING. LUNGS NOTED TO BE CLEAR ON AUSCULTATION. SODIUM LEVEL IS 115. PATIENT IS ALERT AND ORIENTED. PATIENT GIVEN DISCHARGE INSTRUCTIONS ON HYPONATREMIA. NO DISTRESS NOTED. FINAL BLOOD CULTURES AND SPUTUM CULTURE WERE NEGATIVE. WE PLANNED FOR DISCHARGE. INSTRUCTIONS FOR MEDICATIONS AND FOLLOW UP WERE DISCUSSED WITH PATIENT AND FAMILY, BOTH VOICED UNDERSTANDING. PATIENT TO BE DISCHARGED HOME WITH HOME HEALTH SERVICES. PATIENT DISCHARGED HOME IN STABLE CONDITION. - Discharge Medications Discharge Medications: Home Medication List fenofibrate micronized 134 mg PO HS 08/24/18 [History] hydrocodone-acetaminophen [[place]] 1 tab PO TID PRN 08/24/18 [History] levothyroxine 137 mcg PO DAILY 08/24/18 [History] losartan 100 mg PO DAILY 08/24/18 [History] metoprolol tartrate 25 mg PO BID 08/24/18 [History] potassium chloride 10 meq PO DAILY 08/24/18 [History] hydrocodone-chlorpheniramine 5 ml PO Q12H PRN #100 ml 08/28/18 [Rx] ipratropium-albuterol 1 ea NEB TID #50 units 08/28/18 [Rx] levofloxacin [Levaquin] 750 mg PO DAILY #7 tab 08/28/18 [Rx] sod.chlorid-potassium chloride [Thermotabs] 1 tab PO BID #60 tab 08/28/18 [Rx] Prescriptions: hydrocodone-chlorpheniramine Dom Coyne ipratropium-albuterol Dom Coyne levofloxacin [Levaquin] Dom Coyne sod.chlorid-potassium chloride [Thermotabs] Dom Conye - Discharge Disposition Discharge Disposition: PATIENT DISCHARGED HOME WITH HOME HEALTH SERVICES. PATIENT TO FOLLOW UP AT OUR OFFICE IN ONE WEEK.
== END 2018-08-28 12:05 | disposition home health service (06) | DRG 194 ==
LOC: MED/SURG 14:31
PROVIDERS: ADMIT Internal Medicine; ATTEND Internal Medicine
DX: J40 Bronchitis, not specified as acute or chronic; R06.02 Shortness of breath; Z23 Encounter for immunization; J18.0 Bronchopneumonia, unspecified organism; E87.1 Hypo-osmolality and hyponatremia
CPT/HCPCS: 36415; 71010; 71020; 71045; 71046; 80053; 83735; 85025; 87040; 87070; 87205; 90686; 94640; 94760; A4222; 90670; J1940; J1956; J2405; J7030; J7620